=== PATIENT | male | born 1955 | race Caucasian/White ===

== ENCOUNTER 2025-01-16 16:50 | Inpatient (IN) | payer MEDICARE, MEDICAID ==
[~2025-01-16] VITALS: Ht 175.3 cm; Wt 78.0 kg
[2025-01-16] VITALS (7 sets, daily range): PULSE 87–95; RESP 17–30; O2SAT 90–99
--- NOTE | 2025-01-16 17:37 | Physician Documentation ---
History of Present Illness ~ Chief Complaint: Respiratory Distress Stated Complaint: SEE CHIEF COMPLAINT Time Seen by MD: 17:22 Mode of Arrival: EMS, Stretcher HPI 69-year-old male history of methamphetamine use, homelessness, COPD with oxygen noncompliance presented to outside hospital for hypoxia found of O2 84% significant wheezing. He was given magnesium 2 g, 125 mg methylprednisone, albuterol 10 mg, Ativan 0.5 mg Lasix 60 mg nitroglycerin ointment azithromycin 500 mg ceftriaxone 2 g Lopressor 5 mg Labs were significant for proBNP elevation 07601 WBC 13.9 hemoglobin 14.1 troponin 0.066 CTA chest pulmonary embolism no evidence of acute pulmonary embolism mild cardiomegaly bronchopneumonia cirrhotic liver, EKG right bundle branch block. Given Lasix nitroglycerin and started on BiPAP ABG at 2:37 a.m. 7.32 PCT 0 54 troponin 0.063, flu covid negative He is unable to provide me any history. Medication Reconciliation Allergies: Coded Allergies: ampicillin (Verified Allergy, Unknown, 01/16/25) tetracycline (Verified Allergy, Unknown, 01/16/25) Miscellaneous Medications Home Med List (No Home Medications), (Reported) Review of Systems Unable to obtain complete ROS: altered mental status Physical Exam Vital Signs: Temperature: 98.9, Source: Oral, Heart Rate: 97, Respiratory Rate: 20, BP: 157/112, Pulse Oximetry: 92, Weight: 78.000 Oxygen Flow Rate: 0 Physical Exam toxic, diaphoretic no jvd lungs rhales and rhonchi, no distress on 3LNC neuro arrousal to sternal rub, moving all extremities. GCS 8 E1V2M5 abdomen soft non tender lower ext 1+ pitting edema skin pale clammy Progress Results/Orders Results/Orders Orders - OHLFS,JONG Powell Hospitalist (01/16/25 20:48) Fill Out Med Reconciliation (01/16/25 20:48) Vital Signs 01/16/25 01/16/25 01/16/25 01/16/25 16:56 18:23 19:00 19:00 Temp 98.9 Pulse 97 95 95 Resp 20 30 18 30 30 B/P (MAP) 157/112 150/83 (105) Pulse Ox 92 97 O2 Flow Rate 0 FiO2 32 10/16/01/16/25 01/16/25 01/16/25 19:10 19:13 19:21 20:00 Pulse 90 88 87 90 Resp 30 30 24 18 30 B/P (MAP) 149/102 (118) Pulse Ox 90 98 O2 Delivery BiPAP+ Bi-pap O2 Flow Rate 0 0.0 FiO2 32 32 32 01/16/25 01/16/25 20:45 21:00 Pulse 90 Resp 18 B/P (MAP) 134/86 (102) Pulse Ox 99 FiO2 40 Laboratory Tests Test 01/16/25 18:01 01/16/25 18:18 01/16/25 20:33 Blood Gas Specimen Type Arterial Arterial Blood Gas Puncture Site Rr Lr O2 Saturation 95.6 94.1 Arterial Blood pH (Temp corrected) 7.288 L 7.387 Arterial Blood pCO2 (Temp correct) 56.3 H 46.7 Arterial Blood pO2 (Temp corrected) 86.4 71.0 L Arterial Blood PO2/FiO2 Ratio 2.70 2.20 Arterial Blood HCO3 26.3 27.4 Arterial Blood Base Excess -1.4 1.8 Arterial Blood Oxyhemoglobin 94.5 92.4 L Arterial Blood Carboxyhemoglobin 1.0 1.5 Arterial Blood Methemoglobin 0.1 0.3 Arterial Blood Deoxyhemoglobin 4.4 5.8 H Christian Test Modified Modified Blood Gas Hemoglobin 15.4 14.7 Blood Gas Temperature 37.0 37.1 Blood Gas Liter Flow 3 Blood Gas Modality Nasal cannula Mask - bipap FiO2 32.0 32.0 White Blood Count 16.7 H Red Blood Count 4.54 L Hemoglobin 14.7 Hematocrit 45.4 Mean Corpuscular Volume 100.0 H Mean Corpuscular Hemoglobin 32.3 H Mean Corpuscular Hemoglobin Concent 32.3 L Red Cell Distribution Width 15.2 H Platelet Count 174 Mean Platelet Volume 7.9 Neutrophils (%) (Auto) 97.3 H Lymphocytes (%) (Auto) 1.3 L Monocytes (%) (Auto) 1.3 L Eosinophils (%) (Auto) 0 Basophils (%) (Auto) 0.1 Neutrophils # (Auto) 16.3 H Lymphocytes # (Auto) 0.2 L Monocytes # (Auto) 0.2 Eosinophils # (Auto) 0.0 Basophils # (Auto) 0.0 CBC Comment Prothrombin Time 11.8 INR International Normalized Ratio 1.2 Activated Partial Thromboplast Time 29 Coagulation Comments Sodium Level 140 Potassium Level 4.4 Chloride Level 102 Carbon Dioxide Level 29.7 Anion Gap 8 Blood Urea Nitrogen 12 Creatinine 1.04 Estimated GFR/1.73 m2 71 BUN/Creatinine Ratio 11.5 Glucose Level 178 H Hemoglobin A1c 5.3 Lactic Acid Level 1.5 Calcium Level 7.8 L Phosphorus Level 4.7 H Magnesium Level 1.9 Total Bilirubin 0.9 Aspartate Amino Transf (AST/SGOT) 24 Alanine Aminotransferase (ALT/SGPT) 26 Alkaline Phosphatase 91 Total Protein 7.5 Albumin 3.3 L Globulin 4.2 Albumin/Globulin Ratio 0.8 L Chemistry Comments Blood Gas Set Respiration Rate 12 Blood Gas Critical Value Called To Dannielle mohr res Microbiology Date/Time Source Procedure Growth Status 01/16/25 19:06 Blood Hand Left Blood Culture - Preliminary NEGATIVE (LESS THAN 24 HOURS) Resulted Heart Score: Heart Score Response (Comments) Value History N/A 0 EKG N/A 0 Age N/A 0 Risk Factors N/A 0 Troponin N/A 0 Total 0 Medical Decision Making Additional information obtaine: old records Findings 69-year-old male history of methamphetamine use presenting as transfer for dyspnea requiring BiPAP. NSTEMI. Pneumonia. He was given ceftriaxone azithromycin Lasix nitroglycerin and labetalol for hypertension. On arrival patient is significantly altered. GCS 8 and unwell appearing. Labs currently still pending. He is currently protecting his airway. I have signed him out to the incoming night physician Dr. Garcia at bedside who is aware of his respiratory compromise. Initial plan for trial BiPAP with further management disposition per Dr. Garcia Heart Score: 0 Differential Dx:Considerations: Include: cardiogenic shock, CHF, COPD Departure Disposition: ADMITTED INPATIENT Admitted to Inpatient Unit: to hospitalist Impression: Primary Impression: Acute exacerbation of chronic obstructive airways disease Referrals: NO PRIMARY CARE PROVIDER (PCP) Critical Care Note Total Time (mins): 30 Critical Care Note The very real possibility of a deterioration of this patient's condition required the highest level of my preparedness for sudden, emergent intervention. I provided critical care services, which included medication orders, frequent reevaluations of the patient's condition and response to treatment, ordering and reviewing test results, and discussing the case with various consultants. Excludes time spent performing separately billable procedures. The critical care time associated with the care of the patient was 30 minutes in the management of ams GCS Additional Comment Additional Comment The patient was signed out to me with a history of COPD CHF methamphetamine abuse the patient was hypoxic at the outside institution given antibiotics and sent to our facility for admission. The patient is somnolent but arousable the patient was put on BiPAP serial ABG showed improvement in the patient's acidosis as well as an improvement in his hypercapnia, the patient will be admitted to the medical service case has been discussed with the medical service prior hospitalizations and records were reviewed. Patient's chest x-ray was interpreted by me as showing a pulmonary vascular congestion. The patient's cardiac rehabilitation specialist was interpreted as a sinus rhythm in his pulse oximetry was interpreted as abnormal low. The case was discussed with the hospitalist the patient will be admitted to the hospitalist Signature Scribe Signature: [email or web address] Attestation: ADALID Harkins MD Jan 16, 2025 17:37 OHLFS,JONG Hutchinson MD Jan 17, 2025 03:11
--- NOTE | 2025-01-16 17:40 | ELECTROCARDIOGRAPH REPORT ---
[facility] Test Date: 2025-01-16 Test Time: 16:56:34 Pat Name: BALJIT ROBLES Department: EMERGENCY ROOM Room: Gender: M Substation Supervisor: LAQUITA : [id number] Requested By: ADALID WHEELER Order Number: [id number] Reading MD: Measurements Intervals Dell Rate: 97 P: 47 MT: 127 QRS: -94 QRSD: 140 T: 58 QT: 411 QTc: 522 Interpretive Statements Sinus rhythm RBBB and LAFB Baseline wander in lead(s) V6 Please click the below link to view image of tracing.
[2025-01-16 18:06] LABS: ABG BASE EXCESS -1.4 mmol/L (-2.0-3.0); ABG HCO3 26.3 mmol/L (21.0-28.0); ABG OXYGEN SATURATION 95.6 % (94.0-98.0); ABG PCO2 (T) 56.3 mmHg (35.0-48.0); ABG PH (T) 7.288 (7.350-7.450); ABG PO2 (T) 86.4 mmHg (83.0-108.0); ALLEN'S TEST Modified; FCOHb 1.0 % (0.5-1.5); FHHb 4.4 % (0.0-5.0); FIO2 32.0 mmHg/%; FLOW 3 L/min; FMetHb 0.1 % (0.0-1.5); FO2Hb 94.5 % (94.0-98.0); MODE NASAL CANNULA; PATIENT TEMPERATURE 37.0; TOTAL HEMOGLOBIN 15.4 G/dl (13.5-17.5)
[2025-01-16 18:29] LABS: MEAN PLATELET VOLUME 7.9 FL (7.4-10.4); RED CELL DISTRIBUTION WIDTH 15.2 % (11.5-14.5)
[2025-01-16 18:48] LABS: CREATININE 1.04 MG/DL (0.60-1.10); TOTAL CARBON DIOXIDE 29.7 MMOL/L (24-32); eCRCL 68 ML/MIN; eGFR 71 ML/MIN
[2025-01-16] MEDS: albuterol 2.5 MG/3 ML nebule NEB ONE (19:07)
--- NOTE | 2025-01-16 19:28 | RADIOLOGY REPORT ---
EXAM: DI CHEST,SINGLE VIEW CLINICAL HISTORY: sob TECHNIQUE: Single AP view of the chest WID: COMPARISON: None FINDINGS: Lines and tubes: None Chest: Cardiomegaly and pulmonary vascular congestion. Calcified plaque projects over the aortic arch. No significant pleural effusion, pneumothorax, or consolidation. The osseous structures are grossly intact. IMPRESSION: 1. Cardiomegaly and pulmonary vascular congestion.
[2025-01-16 20:40] LABS: ABG BASE EXCESS 1.8 mmol/L (-2.0-3.0); ABG HCO3 27.4 mmol/L (21.0-28.0); ABG OXYGEN SATURATION 94.1 % (94.0-98.0); ABG PCO2 (T) 46.7 mmHg (35.0-48.0); ABG PH (T) 7.387 (7.350-7.450); ABG PO2 (T) 71.0 mmHg (83.0-108.0); ALLEN'S TEST Modified; FCOHb 1.5 % (0.5-1.5); FHHb 5.8 % (0.0-5.0); FIO2 32.0 mmHg/%; FMetHb 0.3 % (0.0-1.5); FO2Hb 92.4 % (94.0-98.0); MODE MASK - BIPAP; PATIENT TEMPERATURE 37.1; RESPIRATORY RATE 12 b/min; TOTAL HEMOGLOBIN 14.7 G/dl (13.5-17.5)
[2025-01-16] MEDS ORDERED: potassium Cl 40MEQ/1/2NS 520ml 520 ML IV PRN (21:30)
[2025-01-16] MEDS ORDERED: magnesium sulf-water 4G/100mL 100 ML IV PRN (21:30)
[2025-01-16] MEDS ORDERED: magnesium Cl slow-release 64mg tablet PO PRN (21:30)
[2025-01-16] MEDS ORDERED: magnesium hydroxide 30ml (MOM) UD suspension PO PRN (21:30)
[2025-01-16] MEDS ORDERED: potassium Cl 20 mEq SR tablet PO PRN ×2 (21:30)
[2025-01-16] MEDS ORDERED: ondansetron/PF 4mg/2ml inj IV PRN (21:30)
[2025-01-16] MEDS ORDERED: magnesium sulf-water 2g/50mL 50 ML IV PRN (21:30)
[2025-01-16] MEDS ORDERED: mag hydrox/Alum hydrox/simeth 30ml oral suspension PO PRN (21:30)
[2025-01-16 21:56] LABS: PHOSPHORUS 4.7 MG/DL (2.3-4.5)
[2025-01-16 21:57] LABS: APTT 29 SECONDS (22-32); INR 1.2 INR
[2025-01-16] MEDS: methylPREDNISolone sod succ/PF 40mg inj. IV SCH (22:14)
[2025-01-16] MEDS: furosemide 10 MG/1 ML 10ml inj IV SCH (22:14)
--- NOTE | 2025-01-16 22:52 | HISTORY AND PHYSICAL-Residence ---
History & Physical Providers to CC Resident Creating Document: ADAL MARRERO RES ~ History of Present Illness Reason for Admit\Complaint: Shortness of breath, AMS History of Present Illness 69-year-old male with history of COPD, meth use, cardiomyopathy, hypertension, CHF was transferred from [facility] for further evaluation and management of acute respiratory failure. Patient was altered when he arrived at our hospital and only opens eyes when called upon and on BiPAP, patient was unable to give history. History was obtained from ED staff and records from [facility]. Patient has intermittent history of homelessness, but currently residing with his friend. He has been noncompliant with his oxygen at home, and has had increasing shortness of breath and generalized weakness over the past week. Today his friend noted that his work of breathing had worsened and called EMS. EMS went to the scene where the patient's room air oxygen was at 84% and had substantial wheezing with some labored breathing. Patient denied chest pain, fever, chills, palpitations, swelling or pain in legs. Hospital course at [facility]: Patient's oxygen saturation improved to 93% at 3 L oxygen. He was was given IV methylprednisolone 125 mg, albuterol nebulization, IV azithromycin 500 mg and IV ceftriaxone 2 g. His ABGs were concerning for respiratory failure and the patient was transferred here for higher level of care. He was also given IV Lasix 40 mg, nitroglycerin 2% transdermal and metoprolol tartrate 5 mg in view of fluid overload and history of CHF and meth induced cardiomyopathy. He had elevated troponin-0.063 ng/mL, and EKG showed sinus tachycardia, rate 102 with right bundle branch block. CTA showed no evidence of acute PE, mild cardiomegaly, bronchopneumonia or nonspecific hypersensitivity pneumonitis, multilevel chronic mild compression fractures of the spine, cirrhotic liver morphology suggested and nonobstructing 6 mm left renal calculus Allergies: Coded Allergies: ampicillin (Verified Allergy, Unknown, 01/16/25) tetracycline (Verified Allergy, Unknown, 01/16/25) Past Medical History Past Medical History COPD Methamphetamine induced cardiomyopathy Hypertension HFrEF Pneumonia Methamphetamine abuse Past Surgical History Surgical History Comment No surgical history available Past Social History Social History Comment Patient has history of meth abuse He continues to smoke cigarettes as per records Unable to obtain further social history, patient is altered ROS ROS Unable to obtain ROS as patient is altered and on BiPAP Unable to obtain: altered mental status Exam Vitals: Vital Signs Date Time Temp Pulse Resp B/P (MAP) Pulse Ox O2 Delivery O2 Flow Rate FiO2 01/16/25 20:45 40 01/16/25 19:21 87 24 Bi-pap 0.0 01/16/25 19:13 90 01/16/25 19:00 150/83 (105) 01/16/25 16:56 98.9 General: Altered and drowsy, disheveled, in respiratory distress HEENT: Atraumatic, normocephalic, anicteric sclera ; pink conjunctiva Neck: Trachea midline. Supple, full range of motion, no JVD Cardiac: Regular rhythm, regular rate with no murmurs all over the precordium. Respiratory: Diminished breath sounds bilaterally at the bases, tachypneic, expiratory wheezing , No rub or rales, Chest wall is symmetric and without deformity. Gastrointestinal: Abdomen symmetric, non-distended, soft, non-tender, normal bowel sounds, no masses Musculoskeletal: Bilateral pitting pedal edema 2+, no cyanosis Neurological: Patient was altered, unable to do neurological examination Skin: Warm and dry Diagnostic Data Last Recorded Lab Results: 01/16/25181701/16/251817 Diagnostic Data: Laboratory Tests Test 01/16/25 18:18 Prothrombin Time 11.8 SECONDS (9.0-12.0) INR International Normalized Ratio 1.2 INR Activated Partial Thromboplast Time 29 SECONDS (22-32) Coagulation Comments Additional Plan Acute respiratory failure COPD exacerbation Possible pneumonia Altered mental status, probably due to hypoxic encephalopathy Tachypneic, RR-30 Patient is on BiPAP, pulse ox-90 Blood pressure is elevated-150/83 Patient uses 3 L oxygen at home, was not compliant with it WBC-16.7, Leukocytosis with neutrophilic predominance of 97.3% Acidotic with hypercapnia, ABG at 6:00 p.m. on 3 L O2 NC showed pH of 7.28, pCO2 56.3 and pO2 86.4 Repeat ABG at 8:30 p.m. on BiPAP with FiO2 -32 showed pH 7.3, pCO2 of 46.7 and pO2 71 GCS 8 on admission Glucose is elevated-178, probably due to steroids Liver enzymes are normal Kidney function is normal Chest x-ray shows cardiomegaly with pulmonary vascular congestion CTA at [facility] shows no evidence for acute pulmonary embolism, mild cardiomegaly, bronchopneumonia are nonspecific hypersensitivity pneumonitis. -mild intrathoracic lymphadenopathy, nonspecific for inflammatory or neoplastic -cirrhotic liver morphology suggested -nonobstructing 6 mm left renal calculus -multilevel chronic mild compression fractures of the spine Plan: Continue BiPAP, we will try to wean patient in the a.m. after evaluation Patient was given IV methylprednisolone [address] [facility] Started IV methylprednisolone 60 mg b.i.d. Started DuoNebs-albuterol 2.5 mg q.2h and ipratropium/albuterol q.4h Started incentive spirometry Started IV ceftriaxone 1 g and IV azithromycin 500 mg daily Started IV Lasix 40 mg daily due to fluid overload Follow up sputum cultures and blood cultures We will consider abdominal ultrasound after stabilization, in view of cirrhotic morphology on CTA Acute on chronic heart failure with reduced ejection fracture Meth induced cardiomyopathy Hypertension Elevated troponin, possibly type 2 NC due to demand ischemia BNP was elevated-[id number] Troponin was 0.066 ng/mL at [facility] EKG shows sinus rhythm, rate 97, QTC 522 with right bundle branch block Chest x-ray shows cardiomegaly and pulmonary vascular congestion Magnesium is normal 1.9 Potassium is normal 4.4 Kidney function is normal Plan: Started IV Lasix 40 mg b.i.d. Strict Is&Os, we will adjust Lasix accordingly We will continue patient's home medications after med reconciliation Ordered IV hydralazine 10 mg p.r.n. if SBP >180 Follow up echo Follow up troponin IV magnesium sulfate 2 g was given to the patient in view of QT prolongation Continue telemetry monitoring Hypocalcemia Hyperphosphatemia Calcium is 7.8 Phosphorus is 4.7 Monitor BMP Methamphetamine abuse Follow up urine tox outpatient services director and substance use navigator consulted #Pending med reconciliation Code status: Full code DVT prophylaxis: SCD Diet/nutrition: Heart healthy diet Prognosis: Guarded Disposition: Continue BiPAP and telemetry monitoring, follow up cultures and troponin, PT eval and DC plan Resident attestation: The patient note has been reviewed and supervised by senior residents PGY-2/ PGY-3. Patient was seen, examined and discussed with attending physician. Adal Marrero MD Internal Medicine resident, PGY-1 Patient seen and evaluated Agree with plans as discussed with the resident Marino Hawk MD Date of Service: Jan 16, 2025 Billing Provider: MARINO HAWK MD, PREETHI, RES Jan 16, 2025 22:52 MARINO HAWK MD Jan 17, 2025 02:39
[2025-01-16] MEDS ORDERED: albuterol 2.5 MG/3 ML nebule NEB SCH (23:00)
[2025-01-16] MEDS: ipratropium/albuterol 3ml nebule NEB SCH (23:05)
[2025-01-16] MEDS ORDERED: albuterol 2.5 MG/3 ML nebule NEB PRN (23:10)
[2025-01-17] VITALS (20 sets, daily range): BP systolic 107–130; BP diastolic 59–89; PULSE 88–108; RESP 12–28; TEMP 96.7–98.7; O2SAT 92–99
[2025-01-17] MEDS ORDERED: hydrALAZINE 20mg/ml inj. IV PRN (00:05)
[2025-01-17] MEDS: magnesium sulf-water 2g/50mL 50 ML IV STA (00:28)
[2025-01-17] MEDS ORDERED: NO HOME MEDS (01:50)
[2025-01-17 07:02] LABS: MEAN PLATELET VOLUME 8.6 FL (7.4-10.4); RED CELL DISTRIBUTION WIDTH 15.2 % (11.5-14.5)
[2025-01-17 07:18] LABS: CHOL/HDL RATIO 2.9 (0.00-4.99); CREATININE 1.15 MG/DL (0.60-1.10); LDL CHOLESTEROL 90 MG/DL (50-100); TOTAL CARBON DIOXIDE 34.6 MMOL/L (24-32); eCRCL 62 ML/MIN; eGFR 63 ML/MIN
[2025-01-17] MEDS: K and/or MAG REPLACEMENT MC SCH (08:00)
[2025-01-17] MEDS: CefTRIAXone/D5W-Rocephin 1gm 50 ML IV SCH (08:46)
[2025-01-17] MEDS: furosemide 10 MG/1 ML 10ml inj IV SCH (08:47)
[2025-01-17] MEDS: lactobacillus rhamnosus 10,000 MMU CELLS/CAPSULE PO SCH (08:48)
[2025-01-17] MEDS: docusate sod 100mg capsule PO SCH (08:48)
[2025-01-17] MEDS: methylPREDNISolone sod succ/PF 40mg inj. IV SCH (08:49)
--- NOTE | 2025-01-17 10:44 | PROGRESS NOTE ---
Daily Progress Note Providers to CC ~ Antibiotic Timeout Antibiotic Ordered?: Yes Subjective No acute events overnight. Patient examined at bedside. No new complaints, not in acute distress. Patient denies chest pain, sob, palpitations, abdominal pain, n/v/d. ABG respiratory acidosis. Vss, on NC, labs unremarkable. Tele sinus in 90s. Objective Vital Signs Date Time Temp Pulse Resp B/P (MAP) Pulse Ox O2 Delivery O2 Flow Rate FiO2 01/17/25 10:08 92 Nasal Cannula 2.0 01/17/25 07:52 91 18 01/17/25 07:44 32 01/17/25 06:00 97.6 124/80 (95) Result Diagram: 01/17/2560401/17/25604 Physical Exam General: Generalized weakness, A&Ox 3, NAD HEENT: Normocephalic, PERRLA Neck: Supple, trachea midline, no JVD Chest: Clear to auscultation bilaterally Cardiovascular: RRR, S1&S2 GI: Soft and nontender Extremities: No cyanosis/clubbing/or edema BONER MEAT: CN II-XII intact, no focal deficits Musculoskeletal: No paraspinal muscle tenderness, no muscle spasm Skin: Warm and intact Coagulation Studies Laboratory Tests Test 01/16/25 18:18 Prothrombin Time 11.8 SECONDS (9.0-12.0) INR International Normalized Ratio 1.2 INR Activated Partial Thromboplast Time 29 SECONDS (22-32) Coagulation Comments Problem\Assessment\Plan Assessment & Plan Acute COPD exacerbation Acute hypoxic hypercapnic respiratory failure 2/2 above Respiratory acidosis Metabolic encephalopathy 2/2 above Acute decompensated heart failure- follow TTE Methamphetamine-induced cardiomyopathy Hypertension NSTEMI likely Type II 2/2 above -ABG respiratory acidosis, pBNP 11,600, EKG sinus 97bpm, QTC 522, RBBB -BiPAP on admission, on NC, continue steroid, bronchodilators, abx prophylaxis, IV magnesium sulfate 2 g was given to the patient in view of QT prolongation; GDMT as tolerated; follow TTE Hypocalcemia Hyperphosphatemia -follow labs Code status: Full code DVT prophylaxis: heparin Date of Service: Jan 17, 2025 Billing Provider: NOHEMY SHORT Common Visit Codes: [id number] INP/OBS CARE(HIGH) NOHEMY SHORT Jan 17, 2025 10:44
[2025-01-17] MEDS: azithromycin/NS 500mg/250ml 250 ML IV SCH (11:46)
[2025-01-17 15:25] LABS: ABG BASE EXCESS 4.2 mmol/L (-2.0-3.0); ABG HCO3 30.3 mmol/L (21.0-28.0); ABG OXYGEN SATURATION 93.1 % (94.0-98.0); ABG PCO2 (T) 51.2 mmHg (35.0-48.0); ABG PH (T) 7.391 (7.350-7.450); ABG PO2 (T) 67.1 mmHg (83.0-108.0); ALLEN'S TEST POSITIVE; FCOHb 1.2 % (0.5-1.5); FHHb 6.8 % (0.0-5.0); FIO2 28.0 mmHg/%; FLOW 2 L/min; FMetHb 0.3 % (0.0-1.5); FO2Hb 91.7 % (94.0-98.0); MODE NASAL CANNULA; PATIENT TEMPERATURE 37.1; TOTAL HEMOGLOBIN 14.3 G/dl (13.5-17.5)
[2025-01-17] MEDS: albuterol 2.5 MG/3 ML nebule NEB PRN (17:06)
[2025-01-17 17:09] LABS: LEUKOCYTE ESTERASE ,URINE NEGATIVE (Neg); NITRITES, URINE NEGATIVE (Neg); OCCULT BLOOD,URINE NEGATIVE (Neg)
[2025-01-17 17:10] LABS: URINE AMPHETAMINE SCREEN POSITIVE (Neg); URINE BARBITUATE SCREEN NEGATIVE (Neg); URINE BENZODIAZEPINES SCREEN NEGATIVE (Neg); URINE CANNABINOID SCREEN NEGATIVE (Neg); URINE COCAINE SCREEN NEGATIVE (Neg); URINE METHADONE SCREEN NEGATIVE (Neg); URINE OPIATE SCREEN NEGATIVE (Neg); URINE PHENCYCLIDINE SCREEN NEGATIVE (Neg)
[2025-01-17 17:11] LABS: UA COLLECTION TYPE URINAL
[2025-01-17] MEDS: heparin, porcine 5000 units/ml vial SQ SCH (19:43)
--- NOTE | 2025-01-17 19:46 | CARDIOLOGY REPORT ---
APPROVED REPORT EXAM: Comprehensive 2D, Doppler, and color-flow Echocardiogram. Patient Location: 302 Blood Pressure: 124/80 mmHg Heart Rate: 101 bpm Indications Abnormal EKG ProBNP: 24226 Coronary Artery Disease CABG X 4 COPD HX of Methamphetamine Use NO INVESTOR RELATIONS DIRECTOR Previous ECHO: 06/07/22, [facility] , EF: 65-70; m RVE; sev DANISH; m MR 2D Dimensions LA Diam 4.3 cm IVSd 1.3 (0.7-1.1cm) LVDd 5.0 cm PWd 1.6 (0.7-1.1cm) IVSs 1.5 (0.8-1.2cm) LVDs 4.1 (2.5-4.0cm) PWs 1.4 (0.8-1.2cm) LVOT Diameter 2.02 (1.8-2.4cm) LVEF(%) 35.1 (>50%) Ao Asc Diam. 2.77 cm IVC 14.51 mm FS (%) 16.8 % SV 40.7 ml CO 4.1 L/min M-Mode Dimensions Left Atrium(MM) 3.91 (2.5-4.0cm) Aortic Root 3.46 (2.2-3.7cm) Aortic Cusp Exc 1.73 (1.5-2.0cm) MV EPSS 1.8 (<0.5cm) Aortic Valve AoV Peak Dmitry. 126.5 cm/s AoV VTI 20.2 cm AO Peak GR. 6.4 mmHg AO Mean GR. 4 mmHg LVOT VTI 15.78 cm LVOT Peak Dmitry. 99.8 cm/s JOSETTE(VTI)/BSA 2.50 cm2/m2 JOSETTE (VTI) 2.50 cm2 AV DI 0.78 % Mitral Valve MV E Velocity 88.4 cm/s MV Peak Gr. 3 mmHg MV DECEL TIME 172 ms MV A Velocity 68.5 cm/s MV PHT 88 ms E/A Ratio 1.3 MVA (PHT) 2.50 cm2 MV VMax 83.1 cm/s TDI Lateral E' P. V 9.01 cm/s E/Lateral E' 9.8 Tricuspid Valve TR P. Velocity 285 cm/s RAP ESTIMATE 10 mmHg TR Peak Gr. 33 mmHg RVSP 43 mmHg LEFT VENTRICLE Normal LV size with severely decreased function. Mild concentric hypertrophy. LVEF is 30-35%. RIGHT VENTRICLE Right ventricle is severely dilated with reduced function. Elevated right heart pressures with an RVSP of 43 mmHG. ATRIA Left atrium is mildly dilated. AORTIC VALVE Trileaflet AV appears mildly sclerotic without stenosis. No insufficiency. MITRAL VALVE Mild mitral annular calcification without stenosis. Mild regurgitation. TRICUSPID VALVE The tricuspid valve is normal in structure with mild to moderate regurgitation. PULMONIC VALVE Pulmonic valve is grossly normal in structure with physiologic insufficiency. GREAT VESSELS The aortic root is normal in size. The ascending aorta is normal in size. IVC is normal in size. PERICARDIUM Normal pericardium. No effusion. Other Information Study Quality: Adequate Conclusion Normal LV size with severely decreased function. Mild concentric hypertrophy. LVEF is 30-35%. Right ventricle is severely dilated with reduced function. Elevated right heart pressures with an RVSP of 43 mmHG. Left atrium is mildly dilated. Trileaflet AV appears mildly sclerotic without stenosis. No insufficiency. Mild mitral annular calcification without stenosis. Mild regurgitation. The tricuspid valve is normal in structure with mild to moderate regurgitation. Normal pericardium. No effusion.
[2025-01-18] VITALS (18 sets, daily range): BP systolic 110–139; BP diastolic 72–95; PULSE 82–98; RESP 12–29; TEMP 97–97.6; O2SAT 86–99
[2025-01-18 06:16] LABS: MEAN PLATELET VOLUME 8.4 FL (7.4-10.4); RED CELL DISTRIBUTION WIDTH 15.0 % (11.5-14.5)
[2025-01-18 06:38] LABS: CREATININE 1.57 MG/DL (0.60-1.10); PRO BRAIN NATRIURETIC PEPTIDE 4583 PG/ML (0-125); TOTAL CARBON DIOXIDE 33.6 MMOL/L (24-32); eCRCL 44 ML/MIN; eGFR 44 ML/MIN
[2025-01-18] MEDS ORDERED: normal saline 1000ml 1,000 ML IV ONE (07:25)
[2025-01-18] MEDS: normal saline 500ml IV soln 500 ML IV ONE (09:17)
--- NOTE | 2025-01-18 12:49 | PROGRESS NOTE ---
Daily Progress Note Providers to CC ~ Antibiotic Timeout Antibiotic Ordered?: Yes Subjective No acute events overnight. Patient examined at bedside. No new complaints, not in acute distress. Patient denies chest pain, sob, palpitations, abdominal pain, n/v/d. ABG respiratory acidosis. Vss, on NC, labs notable for uptrended Cr, downtrend of serum sodium. Diuretics held, started NS. Objective Vital Signs Date Time Temp Pulse Resp B/P (MAP) Pulse Ox O2 Delivery O2 Flow Rate FiO2 01/18/25 11:28 88 18 Nasal Cannula 2.0 01/18/25 11:18 95 28 01/18/25 02:00 97.2 126/75 (92) Result Diagram: 01/18/2539 01/18/25 0539 Physical Exam General: Generalized weakness, A&Ox 3, NAD HEENT: Normocephalic, PERRLA Neck: Supple, trachea midline, no JVD Chest: Clear to auscultation bilaterally Cardiovascular: RRR, S1&S2 GI: Soft and nontender Extremities: No cyanosis/clubbing/or edema ELECTRIC MOTOR ANALYST: CN II-XII intact, no focal deficits Musculoskeletal: No paraspinal muscle tenderness, no muscle spasm Skin: Warm and intact Coagulation Studies Laboratory Tests Test 01/16/25 18:18 Prothrombin Time 11.8 SECONDS (9.0-12.0) INR International Normalized Ratio 1.2 INR Activated Partial Thromboplast Time 29 SECONDS (22-32) Coagulation Comments Problem\Assessment\Plan Assessment & Plan Acute COPD exacerbation Acute hypoxic hypercapnic respiratory failure 2/2 above Respiratory acidosis Metabolic encephalopathy 2/2 above Acute decompensated systolic heart failure Methamphetamine-induced cardiomyopathy NSTEMI likely Type II 2/2 above Hypertension -ABG respiratory acidosis, pBNP 11,600, EKG sinus 97bpm, QTC 522, RBBB -BiPAP on admission, on NC, continue steroid, bronchodilators, abx prophylaxis, IV magnesium sulfate 2 g was given in view of QT prolongation; GDMT as tolerated 01/18: TTE LVEF of 30-35%, RVSP 44mmHg, [id number] tricuspid regurgitation; Cr uptrended, diuretics held and NS started Code status: Full code DVT prophylaxis: heparin Date of Service: Jan 18, 2025 Billing Provider: NOHEMY SHORT Common Visit Codes: [id number] INP/OBS CARE(HIGH) NOHEMY SHORT SENIOR INSTRUCTIONAL DESIGNER Jan 18, 2025 12:49
[2025-01-18] MEDS: normal saline 1000ml 1,000 ML IV SCH (13:55)
[2025-01-19] VITALS (13 sets, daily range): BP systolic 114–124; BP diastolic 75–81; PULSE 80–92; RESP 18–27; TEMP 97.8–98.5; O2SAT 88–100
[2025-01-19 06:29] LABS: MEAN PLATELET VOLUME 8.4 FL (7.4-10.4); RED CELL DISTRIBUTION WIDTH 14.9 % (11.5-14.5)
[2025-01-19 07:02] LABS: CREATININE 0.90 MG/DL (0.60-1.10); PRO BRAIN NATRIURETIC PEPTIDE 5340 PG/ML (0-125); TOTAL CARBON DIOXIDE 33.6 MMOL/L (24-32); eCRCL 76 ML/MIN; eGFR 83 ML/MIN
[2025-01-19] MEDS ORDERED: ALBU18HF2 INH (07:19)
[2025-01-19] MEDS ORDERED: FLUT1DIS4 INH (07:19)
[2025-01-19] MEDS ORDERED: PRED10TA23 PO (07:19)
[2025-01-19] MEDS ORDERED: LISI5TAB22 PO (07:19)
[2025-01-19] MEDS ORDERED: ASPI81TA52 PO (07:19)
[2025-01-19] MEDS: HYDROcodone/acetaminophen 5mg/325mg tablet PO PRN (10:45)
[2025-01-19] MEDS ORDERED: FURO-150 PO (14:42)
[2025-01-19] MEDS ORDERED: EMPA10TA PO (14:42)
[2025-01-19] MEDS: SODIUM ZIRCONIUM CYCLOSILICATE 10 GM POWD.PACK PO ONE (15:03)
--- NOTE | 2025-01-19 15:39 | DISCHARGE SUMMARY ---
Discharge Summary Providers to CC ~ Discharge Summary Admission Diagnosis: Acute COPD exacerbation Hospital Course DATE OF ADMISSION: 01/16/25 DATE OF DISCHARGE: 01/19/25 Discharge Diagnosis\\Comment: Acute COPD exacerbation Acute hypoxic hypercapnic respiratory failure 2/2 above Respiratory acidosis Metabolic encephalopathy 2/2 above Acute decompensated systolic heart failure Methamphetamine-induced cardiomyopathy NSTEMI likely Type II 2/2 above Hypertension Operations\\Procedures: None Consultants: None Complications: None Condition on DC: Stable New Medications: Albuterol Sulfate (Ventolin Hfa) 90 Mcg Hfa.aer.ad 2 PUFFS INH Q4HPRN PRN for wheezing for 30 Days, #18 GM 0 Refills Aspirin (Aspirin EC) 81 Mg Tablet.dr 1 TAB PO DAILY for 30 Days, #30 TAB Empagliflozin (Jardiance) 10 Mg Tablet 1 TAB PO DAILY for 30 Days, #30 TAB 0 Refills Fluticasone/Salmeterol (Advair 250-50 Diskus) 1 Each Disk.w.dev 1 PUFFS INH Q12H for 30 Days, #1 EA 0 Refills Furosemide* (Lasix*) 20 Mg Tablet 1 TAB PO DAILY for 30 Days, #30 TAB Levofloxacin (Levofloxacin) 750 Mg Tablet 750 MG PO DAILY for 5 Days, #5 TAB Lisinopril (Lisinopril) 5 Mg Tablet 1 TAB PO DAILY for 30 Days, #30 TAB 0 Refills Prednisone (Prednisone) 10 Mg Tablet 0 PO DAILY, #42 TAB Take 6 tabs/day x2 days then 5 daily x2 days 4 daily x2 days 3 daily x2 days 2 daily x2 days 1 daily x2 days then stop. Carvedilol (Carvedilol) 3.125 Mg Tablet 3.125 MG PO BID for 30 Days, #60 TAB Continued Medications: Home Med List (No Home Medications) Each Discharge Summary: History of Present Illness From H&P: "69-year-old male with history of COPD, meth use, cardiomyopathy, hypertension, CHF was transferred from [facility] for further evaluation and management of acute respiratory failure. Patient was altered when he arrived at our hospital and only opens eyes when called upon and on BiPAP, patient was unable to give history. History was obtained from ED staff and records from [facility]. Patient has intermittent history of homelessness, but currently residing with his friend. He has been noncompliant with his oxygen at home, and has had increasing shortness of breath and generalized weakness over the past week. Today his friend noted that his work of breathing had worsened and called EMS. EMS went to the scene where the patient's room air oxygen was at 84% and had substantial wheezing with some labored breathing. Patient denied chest pain, fever, chills, palpitations, swelling or pain in legs. Hospital course at [facility]: Patient's oxygen saturation improved to 93% at 3 L oxygen. He was was given IV methylprednisolone 125 mg, albuterol nebulization, IV azithromycin 500 mg and IV ceftriaxone 2 g. His ABGs were concerning for respiratory failure and the patient was transferred here for higher level of care. He was also given IV Lasix 40 mg, nitroglycerin 2% transdermal and metoprolol tartrate 5 mg in view of fluid overload and history of CHF and meth induced cardiomyopathy. He had elevated troponin-0.063 ng/mL, and EKG showed sinus tachycardia, rate 102 with right bundle branch block. CTA showed no evidence of acute PE, mild cardiomegaly, bronchopneumonia o r nonspecific hypersensitivity pneumonitis, multilevel chronic mild compression fractures of the spine, cirrhotic liver morphology suggested and nonobstructing 6 mm left renal calculus." Hospital Course Diagnostic findings were notable for minimally elevated and downtrending troponin series, ABG revealing respiratory acidosis, elevated pBNP at 11,6000pg/ml, TTE revealing LVEF of 30-35%, RVSP 44mmHg, [id number] tricuspid regurgitation, urine drug toxicology positive for amphetamines, EKG sinus 97bpm with prolonged QTc. Patient was initially treated with supplemental oxygen, steroid, bronchodilators, empirical antibiotics, GDMT including diuretics which was transitioned to intravenous fluids due to developing acute kidney injury. Patient did not experience further complications throughout the entire hospital stay. Patient was seen and examined on the day of discharge. On day of discharge, vss and labs unremarkable. All labs, diagnostic workups, discharge plan discussed with patient in details during visit before discharge. All questions and concerns answered to the best of my professional knowledge. Patient is to be discharged to home to self and to follow-up with PCP within 2 weeks. Patient is referred to guide domestic tour and pulmonary rehab upon discharge. Physical Exam General: A&Ox 3, NAD HEENT: Normocephalic, PERRLA Neck: Supple, trachea midline, no JVD Chest: Clear to auscultation bilaterally Cardiovascular: RRR, S1&S2 GI: Soft and nontender Extremities: No cyanosis/clubbing/or edema PHOTOGRAPHY COORDINATOR: CN II-XII intact, no focal deficits Musculoskeletal: No paraspinal muscle tenderness, no muscle spasm Skin: Warm and intact *Problems/Diagnosis: (1) Acute exacerbation of chronic obstructive airways disease Status: Acute Total Time Spent on D/C: > 30 Minutes Date of Service: Jan 19, 2025 Billing Provider: NOHEMY SHORT Common Visit Codes: 11858-QGE/OBS DISCH DAY >30min NOHEMY SHORT Jan 19, 2025 15:39
--- NOTE | 2025-01-19 15:56 | PROGRESS NOTE ---
Daily Progress Note Providers to CC ~ Objective Vital Signs Date Time Temp Pulse Resp B/P (MAP) Pulse Ox O2 Delivery O2 Flow Rate FiO2 01/19/25 15:51 83 26 Nasal Cannula 2.0 01/19/25 15:43 96 21 01/19/25 11:00 98.5 114/75 (88) Result Diagram: 01/19/25 0536 01/19/25 1340 Coagulation Studies Laboratory Tests Test 01/16/25 18:18 Prothrombin Time 11.8 SECONDS (9.0-12.0) INR International Normalized Ratio 1.2 INR Activated Partial Thromboplast Time 29 SECONDS (22-32) Coagulation Comments NOHEMY SHORT MANAGEMENT PROFESSOR Jan 19, 2025 15:56
[2025-01-19] MEDS ORDERED: COR3.125T PO (16:32)
== END 2025-01-19 17:30 | disposition home or self-care (01) | DRG 280 ==
LOC: ER 16:51 → ED HOLD 21:25 → PCU 3S 01-17 03:04
PROVIDERS: ADMIT Internal Medicine; ATTEND Nurse Practitioner Family
PROC: 5A09357 Assistance with Respiratory Ventilation, Less than 24 Consecutive Hours, Continuous Positive Airway Pressure (ICD-10-PCS; principal; 2025-01-16)
PROC: 5A09357 Assistance with Respiratory Ventilation, Less than 24 Consecutive Hours, Continuous Positive Airway Pressure (ICD-10-PCS; 2025-01-17)
DX: I11.0 Hypertensive heart disease with heart failure (principal); G93.41 Metabolic encephalopathy; I21.A1 Myocardial infarction type 2; J96.01 Acute respiratory failure with hypoxia; I50.23 Acute on chronic systolic (congestive) heart failure; J96.02 Acute respiratory failure with hypercapnia; E87.29 Other acidosis; N17.9 Acute kidney failure, unspecified; J44.1 Chronic obstructive pulmonary disease with (acute) exacerbation; I42.7 Cardiomyopathy due to drug and external agent; I36.1 Nonrheumatic tricuspid (valve) insufficiency; I45.10 Unspecified right bundle-branch block; N20.0 Calculus of kidney; T43.655A Adverse effect of methamphetamines, initial encounter; F15.10 Other stimulant abuse, uncomplicated; E83.39 Other disorders of phosphorus metabolism; E83.51 Hypocalcemia; Z79.899 Other long term (current) drug therapy; Z79.51 Long term (current) use of inhaled steroids; Z79.84 Long term (current) use of oral hypoglycemic drugs; Z91.199 Patient's noncompliance with other medical treatment and regimen due to unspecified reason; Z88.1 Allergy status to other antibiotic agents; Y92.89 Other specified places as the place of occurrence of the external cause
CPT/HCPCS: 36415; 36600; 71045; 80048; 80053; 80061; 80305; 81003; 82803; 83036; 83605; 83735; 83880; 84100; 84132; 84145; 84295; 84484; 85018; 85025; 85610; 85730; 86704; 86705; 87040; 87340; 92508; 92616; 93005; 93306; 94640; 94660; 94760; 97161; 97530; 99291; A4615; A4620; A6258; G0378; J0456; J0696; J1644; J1938; J2919; J7030; J7040; J7070

== ENCOUNTER 2025-03-21 18:17 | Inpatient (IN) | payer MEDICARE, MEDICAID ==
[~2025-03-21] VITALS: Ht 172.7 cm; Wt 90.9 kg
[~2025-03-21 18:17] MED LIST: ALBU18HF2 INH; COR3.125T PO; EMPA10TA PO; FLUT1DIS4 INH; LISI5TAB22 PO; NO HOME MEDS
[2025-03-21] MEDS ORDERED: VANCOMYCIN 1GM 200ML H20 (PEG) 200 ML IV ONE (18:50)
[2025-03-21] MEDS: vancomycin/NS 1 GM ADD-VANTAGE 250 ML IV ONE (18:56)
--- NOTE | 2025-03-21 19:01 | Physician Documentation ---
History of Present Illness ~ Chief Complaint: Leg Pain Stated Complaint: CELLULITIS Time Seen by MD: 18:49 HPI This is a 69-year-old gentleman who came all the way from [facility] for evaluation of two separate complaints. He states for the last couple of days he has been experiencing pain, swelling of the 3rd digit of his right hand. No obvious trigger, trauma provocation. No palliating or aggravating factors. Did not attempt to treat it. This was the main reason for him to come in is because he has been experiencing pain in the finger. He also reports pain, swelling, redness in the right lower extremity. He attributes that to his congestive heart failure, but states this is worse swelling in the worse pain. Can not elaborate on exactly how long has been going on for. Reports subjective fever. Denies chest pain or difficulty breathing. Denies any nausea, vomiting, diarrhea, abdominal pain. Tetanus witin 5 years: No Medication Reconciliation Allergies: Coded Allergies: ampicillin (Verified Allergy, Unknown, 03/21/25) tetracycline (Verified Allergy, Unknown, 03/21/25) Scheduled Carvedilol (Carvedilol), 3.125 MG PO BID Empagliflozin (Jardiance), 1 TAB PO DAILY Fluticasone/Salmeterol (Advair 250-50 Diskus), 1 PUFFS INH Q12H Lisinopril (Lisinopril), 1 TAB PO DAILY Scheduled PRN Albuterol Sulfate (Ventolin Hfa), 2 PUFFS INH Q4HPRN PRN for wheezing Miscellaneous Medications Home Med List (No Home Medications), (Reported) Review of Systems ROS 10 point review of systems was performed and unless noted above in HPI is negative for acute process/complaint. Physical Exam Vital Signs: Temperature: 99.9, Source: Temporal, Heart Rate: 97, Respiratory Rate: 15, BP: 141/87, Pulse Oximetry: 95, Weight: 90.900 Physical Exam GENERAL: Awake, alert, oriented, GCS 15, no apparent distress, non-toxic appearing, answers questions, follows commands appropriately. HEENT: Atraumatic, normocephalic, pupils equal, extraocular muscles intact, sclerae anicteric, mucus membranes moist, oropharynx is clear, no stridor. NECK: supple, full active range of motion, trachea midline, no thyromegaly, no lymphadenopathy, no JVD. CARDIOVASCULAR: regular rate/rhythm, no murmurs/gallops/rubs, Pulses are 2+ in all extremities and symmetric. Capillary refill less than 2 seconds. PULMONARY: Nonlabored, good air movement ,no respiratory distress, speaking in full sentences, clear to auscultation bilaterally, no wheezing, no ronchi, no rales, no accessory muscle use. GASTROINTESTINAL: Soft, non-tender, non-distended, normal active bowel sounds, no organomegaly, no pulsatile masses, no CVA tenderness. NEUROLOGIC: Lucid with normal mental status. Normal facial symmetry. Moves all extremities symmetrically and with purpose. No truncal ataxia. Speech is fluid without evidence of dysarthria or aphasia, no focal deficits appreciated. MUSCULOSKELETAL: There is full range of motion of all extremities. There is no joint pain or joint swelling or joint erythema. There is no muscle pain or tenderness or swelling. EXTREMITIES: warm, well-perfused, no cyanosis, no clubbing, no edema, no acute deformities. Skin: warm, dry, no rashes or lesions, no jaundice, no petechiae orpurpura. No ecchymosis. PSYCHIATRIC: Normal affect, normal insight, normal concentration. Focused exam: Right hand is examined. His 3rd digit is swollen, but not erythematous, not held in flexion, not tender to palpation, and has a 0 [place] signs. Preserved sensation. He is able to close the fist. Right lower extremity is also examined. There is significant erythema, swelling, concern for extensive cellulitis. Neurovascularly baseline distal to the site of injury. It is Progress Results/Orders Results/Orders Orders - STERLING REA DO Culture Blood (03/21/25 18:49) Monitor (03/21/25 18:49) Saline Lock (03/21/25 18:49) Drug Screen, Urine (03/21/25 18:49) Completed Orders - STERLING REA DO Electrocardiogram (03/21/25 18:49) Cbc/Diff (03/21/25 18:49) CK (03/21/25 18:49) ESR (03/21/25 18:49) C-Reactive Protein (03/21/25 18:49) Pt Inr (03/21/25 18:49) PTT (03/21/25 18:49) PBNP (03/21/25 18:49) MG (03/21/25 18:49) Vancomycin 1gm 200ml H20 (Peg) (Vancomyc (03/21/25 18:50) CMP (03/21/25 18:49) Hs Troponin I W Calculations (03/21/25 18:49) Hs Troponin I W Calculations (03/21/25 20:49) Lacticsepsis (03/21/25 18:49) Cefepime 1gm In D5w 50ml (Cefepime 1gm/D (03/21/25 18:50) Ethanol (03/21/25 18:49) Vancomycin/Ns 1 Gm Add-Wins[place] (Vancomyc (03/21/25 18:56) Medications Received in ER Medications (Trade) Dose Ordered Sig/Darline Route PRN Reason Start Time Stop Time Status Last Admin Dose Admin Cefepime/Dextrose 50 ml @ 100 mls/hr ONCE ONCE IV 03/21/25 18:50 03/21/25 19:19 DC 03/21/25 22:08 100 MLS/HR Vancomycin HCl 250 ml @ 166 mls/hr ONCE ONCE IV 03/21/25 18:56 03/21/25 20:20 DC 03/21/25 18:56 166 MLS/HR Vital Signs 03/21/25 03/21/25 03/21/25 03/21/25 18:41 22:10 22:11 23:21 Temp 99.9 99.7 Pulse 97 88 84 Resp 15 16 16 16 B/P (MAP) 141/87 115/67 (83) 109/65 (80) Pulse Ox 95 94 98 Laboratory Tests Test 03/21/25 19:06 03/21/25 21:10 White Blood Count 7.3 Red Blood Count 4.76 Hemoglobin 15.1 Hematocrit 46.2 Mean Corpuscular Volume 96.9 Mean Corpuscular Hemoglobin 31.7 H Mean Corpuscular Hemoglobin Concent 32.7 L Red Cell Distribution Width 14.2 Platelet Count 176 Mean Platelet Volume 7.7 Neutrophils (%) (Auto) 80.3 H Lymphocytes (%) (Auto) 9.8 L Monocytes (%) (Auto) 8.2 Eosinophils (%) (Auto) 1.3 Basophils (%) (Auto) 0.4 Neutrophils # (Auto) 5.8 Lymphocytes # (Auto) 0.7 L Monocytes # (Auto) 0.6 Eosinophils # (Auto) 0.1 Basophils # (Auto) 0.0 CBC Comment Erythrocyte Sedimentation Rate 5 Prothrombin Time 11.6 INR International Normalized Ratio 1.1 Activated Partial Thromboplast Time 27 Coagulation Comments Sodium Level 143 Potassium Level 3.8 Chloride Level 105 Carbon Dioxide Level 34.4 H Anion Gap 4 L Blood Urea Nitrogen 25 H Creatinine 1.27 H Estimated GFR/1.73 m2 56 BUN/Creatinine Ratio 19.7 Glucose Level 181 H Lactic Acid Level 1.9 Calcium Level 8.4 L Magnesium Level 1.8 Total Bilirubin 0.6 Aspartate Amino Transf (AST/SGOT) 24 Alanine Aminotransferase (ALT/SGPT) 21 Alkaline Phosphatase 97 Total Creatine Kinase 75 Troponin I High Sensitivity 162 *H 158 *H C-Reactive Protein 1.88 H Pro-B-Type Natriuretic Peptide 65451 H Total Protein 6.4 Albumin 3.1 L Globulin 3.3 Albumin/Globulin Ratio 0.9 L Chemistry Comments Ethyl Alcohol Level < 10 Troponin I High Sens Percent Delta 2 Troponin I Hi Sens Absolute Change -4 Microbiology Date/Time Source Procedure Growth Status 03/21/25 21:10 Blood Hand Left Blood Culture - Preliminary NEGATIVE (LESS THAN 24 HOURS) Resulted EKG/XRAY/CT/US/VASC/MRI EKG : Additional Comment EKG was obtained and interpreted by myself shows sinus rhythm of 91, normal TN interval, wide QRS with a right bundle, positive QT prolongation, left axis, no STEMI. Medical Decision Making Additional information obtaine: old records Findings Facility Status: ED Holds, [facility] process The plan was discussed with the patient, who demonstrates clear understanding of the plan and is in agreement with the plan unless otherwise noted in the chart. All questions have been answered, all concerns were addressed unless otherwise documented. I was available throughout their ED stay for frequent reassessment and questions. Differential Diagnoses (considered and possible or likely): [With a respect to hand, differential includes but not limited to cellulitis, abscess, less likely osteomyelitis. Given lack of kind navel signs, I do not suspect flexor tenosynovitis. With a respect to her right lower extremity pain and swelling, most likely represents cellulitis, less likely abscess, less likely necrotizing infection, less likely osteomyelitis. CHF exacerbation had also been considerably. Less likely DVT.] ??Differential Diagnoses (considered and unlikely, not requiring evaluation currently): [See above] [facility] Data Please see HPI for the following: Independent Historians and external Records Review. Historian: [Patient] Independent Historians: ?[Record review] old records from January 17 2025 shows echo with a EF of 35% Medication Management: [Reviewed medication list] Social History and determinants: [Reviewed] Please see the body of the note for the following: Any independent inter pretations of ECG, imaging studies. All vitals signs/haemodynamics, ordered tests were independently reviewed and interpreted by myself. Nursing triage complaint and vitals reviewed, additional nursing notes were reviewed as available and I agree unless otherwise noted or documented in contradiction in the chart Vital Signs: Independently reviewed Labs: Independently interpreted Imaging: Independently interpreted Old Medical Records: Independently reviewed, see HPI for relevant summary and information Pulse Oximetry: [97%] interpreted as [normal on room air] by me [Production Machine Operator: [Regular Rate, Regular rhythm, no ectopy, NSR] reviewed and interpreted by me] Additionally notably showing: [Hemodynamics reviewed. The patient isn't febrile, not tachycardic, no evidence of hypotension or respiratory distress. CBC normal, no significant white count, no anemia, normal platelets. 80% neutrophilic predominance. ESR is normal. Coagulation panel is unremarkable. Chemistry shows MURTAZA versus CKD. Marked elevation of BNP and troponin. CRP is elevated. Ethanol is negative. ] Tests considered but not ordered include: [Advanced imaging can be done on an inpatient basis.] Social Determinants of Health Impact: Patient was evaluated in [facility] [place] to healthcare due to below par ratio of patient to medical providers. [] Comorbid Conditions Impacting Present Evaluation and Care/Treatment: [CHF] Management Discussions with other Healthcare Providers: [Hospitalist regarding admission] Treatment and Disposition Medication Management (Given or considered): []. See EMR for details Consideration for Hospitalization/Escalation/Deescalation of Care: Admission for observation is necessary for further management of his CHF exacerbation and cellulitis of left lower extremity. Additionally, infection of the finger has to be treat it, although that could has been done on an outpatient basis. ?ED Course:?[No clinical deterioration or improvement.] ?Shared decision making:?[] Code status:?FULL Please see the full Electronic Medical Record for full details of nursing documentation, medications list, other records of complete past medical history and conditions, vital signs, laboratory studies, and any radiologic study interpretations by radiologists. Portions of this note were completed using [employer] dictation software and as a result there may exist minor errors in spelling. I have reviewed elements of past family and social history and agree as included in note. General Diff Dx:Considerations: Include: Other (See body of may note for differential diagnosis) Knee Diff Dx:Considerations: Unlikely: Other Ankle Diff Dx:Considerations: Unlikely: Other Foot Diff Dx:Considerations: Unlikely: Other Toe Diff Dx:Considerations: Unlikely: Other Departure Disposition: ADMITTED INPATIENT Admitted to Inpatient Unit: to hospitalist Impression: Primary Impression: Acute exacerbation of congestive heart failure Additional Impressions: Elevated troponin Right forearm cellulitis Finger infection Condition: Stable Referrals: NO PRIMARY CARE PROVIDER (PCP) Signature Scribe Signature: No scribe Attestation: The note accurately reflects work and decisions made by me.Sterling Rea DO 03/21/25 18:59 STERLING REA DO Mar 21, 2025 19:01
--- NOTE | 2025-03-21 19:08 | ELECTROCARDIOGRAPH REPORT ---
[facility] Test Date: 2025-03-21 Test Time: 19:06:51 Pat Name: BALJIT ROBLES Department: [facility]-ER Patient ID: [facility]-[id number] Room: [place] [address] Gender: M Septic Tank Cleaner: CARLOS : 1955 Requested By: ADALID REA Order Number: [id number] Reading MD: Dr. Lucian Tatum Measurements Intervals [place] Rate: 91 P: 63 WI: 162 QRS: -114 QRSD: 148 T: 62 QT: 428 QTc: 527 Interpretive Statements Sinus rhythm LAE, consider biatrial enlargement RBBB and LAFB Electronically Signed On 03-27-2025 0:22:[address] Lucian Tatum Please click the below link to view image of tracing.
[2025-03-21 19:13] LABS: MEAN PLATELET VOLUME 7.7 FL (7.4-10.4); RED CELL DISTRIBUTION WIDTH 14.2 % (11.5-14.5)
[2025-03-21 19:27] LABS: APTT 27 SECONDS (22-32); INR 1.1 INR
[2025-03-21 19:30] LABS: CREATININE 1.27 MG/DL (0.60-1.10); TOTAL CARBON DIOXIDE 34.4 MMOL/L (24-32); eCRCL 52 ML/MIN; eGFR 56 ML/MIN
[2025-03-21 19:37] LABS: ETHANOL < 10 MG/DL (<10); PRO BRAIN NATRIURETIC PEPTIDE 11468 PG/ML (0-125)
[2025-03-21] MEDS: cefepime 1GM in D5W 50mL 50 ML IV ONE (22:08)
[2025-03-22] MEDS ORDERED: potassium Cl 40MEQ/1/2NS 520ml 520 ML IV PRN (00:15)
[2025-03-22] MEDS ORDERED: magnesium sulf-water 4G/100mL 100 ML IV PRN (00:15)
[2025-03-22] MEDS ORDERED: potassium Cl 20 mEq SR tablet PO PRN (00:15)
[2025-03-22] MEDS ORDERED: magnesium hydroxide 30ml (MOM) UD suspension PO PRN (00:15)
[2025-03-22] MEDS ORDERED: mag hydrox/Alum hydrox/simeth 30ml oral suspension PO PRN (00:15)
[2025-03-22] MEDS ORDERED: magnesium Cl slow-release 64mg tablet PO PRN (00:15)
[2025-03-22] MEDS ORDERED: magnesium sulf-water 2g/50mL 50 ML IV PRN (00:15)
[2025-03-22] MEDS ORDERED: ondansetron/PF 4mg/2ml inj IV PRN (00:15)
--- NOTE | 2025-03-22 00:21 | HISTORY AND PHYSICAL-Residence ---
History & Physical Providers to CC Resident Creating Document: AMARI CURIEL, KEYUR ~ History of Present Illness Reason for Admit\Complaint: Acute exacerbation of CHF, right upper and lower extremity cellulitis History of Present Illness 69-year-old male with history of COPD, polysubstance use, nicotine use, methamphetamine use, alcohol use disorder, meth induced cardiomyopathy, systolic heart failure,, hypertension, presented to the ER with chief complaints of swelling of the right 3rd finger and swelling over bilateral lower leg. He endorses swelling of right 3rd finger for the past 2 and of days and he do have fever for the past 2 days, high-grade, intermittent not associated with chills and rigors. He endorses swelling, redness, pain over the bilateral lower leg for the past few months which is more from the past 3 days. He reports shortness of breath usually with walking for 10-20 block and denied association with orthopnea and PND. He is complaining of the swelling of the leg for the past 3 months. He endorses productive cough with clear mucoid sputum and wheezing for the past 3 days. She is still taking the meth and his last methamphetamine use is 2-3 days back and he is drinking alcohol and his last drink was couple of days back. She denied chest pain, palpitations, facial puffiness, abdominal pain, abdominal distention, decreased urine output, wheezing. He denied weakness of limbs, slurring of speech, deviation of angle of mouth, seizures. Discussed code status with the patient and patient wants to be full code Allergies: Coded Allergies: ampicillin (Verified Allergy, Unknown, 03/21/25) tetracycline (Verified Allergy, Unknown, 03/21/25) Home Medications Home Medications Active Carvedilol 3.125 Mg Tablet 3.125 Mg PO BID 30 Days Jardiance (Empagliflozin) 10 Mg Tablet 1 Tab PO DAILY 30 Days Advair 250-50 Diskus (Salmeterol Xinafoate/Fluticasone) 1 Each Disk.w.dev 1 Puffs INH Q12H 30 Days Ventolin Hfa (Albuterol Sulfate) 90 Mcg Hfa.aer.ad 2 Puffs INH Q4HPRN PRN 30 Days Lisinopril 5 Mg Tablet 1 Tab PO DAILY 30 Days Reported No Home Medications (Home Med List) Each Past Medical History Past Medical History COPD Methamphetamine induced cardiomyopathy Hypertension HFrEF Pneumonia Methamphetamine abuse Past Surgical History Surgical History Comment Unknown Family History Family History: Patient reports no known family medical history. Past Social History Social History Comment He takes methamphetamine and he has lost intake is on couple of days back . Smoking cigarettes about 1 pack a day and he endorses that he quit smoking few weeks back(questionable history, inconsistent with the answers) He takes alcohol(he is not sure about the quantity but he seems to be taking heavy quantities of alcohol and his last alcohol intake was few days ago Smoking: Quit less than 1 year, Cigarettes, Greater than 1 pack/day Alcohol Use: Heavy Drug Use: Methamphetamine ROS All Other Systems: Reviewed and Negative ROS Reviewed in full and negative except positive pertinent as in HPI Exam Vitals: Vital Signs Date Time Temp Pulse Resp B/P (MAP) Pulse Ox O2 Delivery O2 Flow Rate FiO2 03/22/25 00:11 99.7 83 16 108/69 (82) 95 0 General: General: Awake, alert, oriented, GCS 15, no apparent distress, non-toxic appearing.. HEENT: Atraumatic, normocephalic, pupils equal, extraocular muscles intact, sclerae anicteric, mucus membranes moist, oropharynx is clear, no stridor. Neck: supple, full active range of motion, trachea midline, no thyromegaly, no lymphadenopathy, no JVD. Cardiovascular system: regular rate/rhythm, no/gallops/rubs. Pansystolic murmur heard in the left lower sternal border, grading 1 to 2/6. Pulses are 2+ in all extremities and symmetric. Capillary refill less than 2 seconds. Chest and respiratory system: Nonlabored, good air movement ,no respiratory distress, speaking in full sentences, clear to auscultation bilaterally, no wheezing, no ronchi, bilateral basal crepitations are heard. no accessory muscle use. Gastrointestinal: Soft, non-tender, non-distended, normal active bowel sounds, no organomegaly, no pulsatile masses, no CVA tenderness. Neurological system: Higher mental functions are intact. Tone, bulk, power, reflexes are normal and intact. Sensory system is intact cranial nerves 2-12 are intact. No signs of cerebellum dysfunction. No signs of meningitis Musculoskeletal: There is full range of motion of all extremities. There is no joint pain or joint swelling or joint erythema. There is no muscle pain or tenderness or swelling. Extremities: warm, well-perfused, no cyanosis, no clubbing, no edema, no acute deformities. Right hand: 3rd digit is swollen but not erythematous and nontender. Right and left lower extremity: Swelling, erythematous suggestive of cellulitis. Skin: warm, dry, no rashes or lesions, no jaundice, no petechiae orpurpura. No ecchymosis. Healed crusted ulcers are there on bilateral faith of TBI Psychiatric: Normal affect, normal insight, normal concentration. Diagnostic Data Last Recorded Lab Results: 03/21/[id number] Diagnostic Data: Laboratory Tests Test 03/21/25 19:06 Prothrombin Time 11.6 SECONDS (9.0-12.0) INR International Normalized Ratio 1.1 INR Activated Partial Thromboplast Time 27 SECONDS (22-32) Coagulation Comments Advance Care Planning Advanced Care plannin - 30 Minutes Additional Plan Acute on chronic systolic heart failure Heart failure with reduced ejection fraction of 30-35% Dilated cardiomyopathy , methamphetamine related Pulmonary hypertension Previous echocardiogram showed mild concentric LVH. With LVEF of 30-35%. Right ventricle severe dilatation with a reduced function. Elevated right heart pressures with RVSP of 43. Left atrium is mildly dilated. [id number] [place] [address] Chest x-ray showed cardiomegaly with bilateral pulmonary congestion Started on Lasix 40 mg IV b.i.d. titrate to lower doses to maintain euvolemia We will continue GDM T medications of losartan 25 mg, spironolactone 25 mg, Jardiance 10 mg, carvedilol 3.125 mg b.i.d. We will continue aspirin 81 mg atorvastatin 40 mg. Right upper extremity cellulitis Bilateral lower extremity cellulitis WBC and lactic acid is normal. Elevated CRP Procalcitonin is ordered Started on vancomycin pharmacy to dose and cefepime 2 g IV q.12h Ordered x-ray right hand and CT lower extremity to rule out osteomyelitis Polysubstance use Methamphetamine use Alcohol use Nicotine use Social and substance use consults were placed and patient is on detox protocol Ordered urinary tox follow up with the results. Troponinemia likely secondary to type 2 [place] EKG showed bifascicular block on troponins are trended down to 158 from 162 Ordered echocardiogram and we will follow up with the results We will continue aspirin, atorvastatin MURTAZA likely secondary to renal tubular stasis Serum creatinine is 1.27 and BUN to creatinine ratio of 19.7 likely suggestive of renal tubular stasis We ordered urinary lytes with serum osmolality, follow up with the results Obesity class 1 Follow up in outpatient with PCP Recommended for weight reduction and physical exercise Code status: Full code Diet: Heart healthy diet DVT prophylaxis: Heparin Prognosis: Guarded Amari Curiel IM resident, PGY 2 I saw and discussed the case of the patient with the resident team and I agree with assessment and plan as documented We utilized the HIPPAA compliant A/V system Time spent was 31 minutes Date of Service: Mar 22, 2025 Billing Provider: RAKESH NGUYEN MD, VENKATES[place], [facility] Mar 22, 2025 00:21 RAKESH NGUYEN MD Mar 22, 2025 07:51
[2025-03-22 00:40] LABS: LEUKOCYTE ESTERASE ,URINE NEGATIVE (Neg); NITRITES, URINE NEGATIVE (Neg); OCCULT BLOOD,URINE NEGATIVE (Neg)
[2025-03-22 00:41] LABS: UA COLLECTION TYPE NON-SPECIFIED
[2025-03-22 00:46] LABS: CREATININE,URINE RANDOM 44.0 MG/DL; TOTAL PROTEIN,URINE RANDOM 10.2 MG/DL
[2025-03-22 00:49] LABS: SQUAMOUS EPITHELIAL CELL,UR NONE SEEN /LPF (FEW)
[2025-03-22 00:57] LABS: PHOSPHORUS 3.8 MG/DL (2.3-4.5)
--- NOTE | 2025-03-22 00:58 | RADIOLOGY REPORT ---
CHEST RADIOGRAPH INDICATION: CHF TECHNIQUE: Single frontal view of the chest was obtained COMPARISON: DI CHEST,SINGLE VIEW on DOS: 01/16/25, CHEST 1 VIEW on DOS: 01/16/25 FINDINGS: Lungs and pleural spaces are clear. Cardiac silhouette is enlarged. No pulmonary edema. Bones and soft tissues demonstrate no significant abnormality. IMPRESSION: No acute disease.
[2025-03-22 01:02] LABS: OSMOLALITY UA 538.0 MOSM/K (50-1400)
[2025-03-22] MEDS ORDERED: ATOR40TA72 PO (01:02)
[2025-03-22] MEDS ORDERED: DOCU-391 PO (01:02)
[2025-03-22] MEDS ORDERED: LOSA25TA41 PO (01:02)
[2025-03-22] MEDS ORDERED: FURO40TA4 PO (01:02)
[2025-03-22] MEDS ORDERED: SPIR25TA5 PO (01:02)
[2025-03-22] MEDS ORDERED: ASPI-1397 PO (01:02)
[2025-03-22 01:06] LABS: UA EOSINOPHILS NO EOS /HPF
[2025-03-22 01:11] LABS: URINE AMPHETAMINE SCREEN POSITIVE (Neg); URINE BARBITUATE SCREEN NEGATIVE (Neg); URINE BENZODIAZEPINES SCREEN NEGATIVE (Neg); URINE CANNABINOID SCREEN NEGATIVE (Neg); URINE COCAINE SCREEN NEGATIVE (Neg); URINE METHADONE SCREEN NEGATIVE (Neg); URINE OPIATE SCREEN NEGATIVE (Neg); URINE PHENCYCLIDINE SCREEN NEGATIVE (Neg)
[2025-03-22] MEDS ORDERED: dextrose 50%-water 50ml dispensing syringe IV PRN (01:15)
[2025-03-22] MEDS: furosemide 10 MG/1 ML 10ml inj IV SCH (01:18)
--- NOTE | 2025-03-22 02:02 | RADIOLOGY REPORT ---
CLINICAL INDICATION: Right hand cellulitis with osteomyelitis TECHNIQUE: HAND LTDDI HAND,LIMITED (AP/LAT) COMPARISON: None FINDINGS/IMPRESSION: : No obvious erosive changes to suggest osteomyelitis. Severe soft tissue swelling at the 3rd finger. No soft tissue gas.
[2025-03-22 03:21] LABS: CREATININE 1.23 MG/DL (0.60-1.10); eCRCL 54 ML/MIN; eGFR 58 ML/MIN
[2025-03-22 04:40] LABS: OSMOLALITY 295 MOSM/K (280-300)
[2025-03-22] MEDS: vancomycin/NS 1 GM ADD-VANTAGE 250 ML IV SCH (07:27)
[2025-03-22] MEDS: nicotine 14mg patch - 24hr TD SCH (07:27)
[2025-03-22] MEDS: aspirin 81mg, enteric-coated 1 TAB TABLET.DR PO SCH (07:28)
[2025-03-22] MEDS: heparin, porcine 5000 units/ml vial SQ SCH (07:28)
[2025-03-22] MEDS: docusate sod 100mg capsule PO SCH (07:29)
[2025-03-22] MEDS: thiamine 100mg/ml 2ml inj. IV SCH (07:29)
[2025-03-22] MEDS: EMPAGLIFLOZIN 10 MG TABLET PO SCH (07:30)
[2025-03-22] MEDS: K and/or MAG REPLACEMENT MC SCH (08:00)
[2025-03-22] MEDS: folic acid 1mg/0.2ml inj IV SCH (10:00)
[2025-03-22] MEDS: CEFEPIME 2gm in D5W 50mL 50 ML IV SCH (10:00)
--- NOTE | 2025-03-22 11:42 | RADIOLOGY REPORT ---
PROCEDURE: CT CT LOWER EXTREMITY 03/22/2025 10:48 AM INDICATION: Cellulitis with osteomyelitis Comparison Study: None TECHNIQUE: Axial images of the lower extremity were obtained and reformatted in coronal and sagittal planes. All CT scans at this medical facility are performed using dose modulation techniques as appropriate to a performed exam including the following: Automated exposure control was utilized; adjustment of the MA and/or KV according to patient size; and use of iterative reconstruction technique. CT Dose: CTDI volume is 5.4 mGy. Dose-length product is 571 mGy*cm FINDINGS: Bones: No erosive changes of the bony cortex. No periostitis. No lytic or blastic lesions Soft tissues: Slight soft tissue swelling without focal abscess. IMPRESSION: 1. No signs of osteomyelitis or soft tissue abscess.
[2025-03-22] MEDS: HYDROcodone/acetaminophen 5mg/325mg tablet PO PRN (12:28)
[2025-03-23] VITALS (10 sets, daily range): BP systolic 106–194; BP diastolic 55–94; PULSE 69–94; RESP 13–24; TEMP 97.6–99; O2SAT 91–98
[2025-03-23 01:50] LABS: MEAN PLATELET VOLUME 8.0 FL (7.4-10.4); RED CELL DISTRIBUTION WIDTH 14.4 % (11.5-14.5)
[2025-03-23] MEDS: VANCOMYCIN LEVEL IV ONE (06:30)
[2025-03-23 09:03] LABS: CREATININE 1.20 MG/DL (0.60-1.10); PHOSPHORUS 3.4 MG/DL (2.3-4.5); TOTAL CARBON DIOXIDE 34.4 MMOL/L (24-32); eCRCL 55 ML/MIN; eGFR 60 ML/MIN
[2025-03-23] MEDS: potassium Cl 20 mEq SR tablet PO PRN (09:47)
[2025-03-23] MEDS: HYDROcodone/acetaminophen 10/325mg tab PO PRN (16:56)
--- NOTE | 2025-03-23 18:06 | PROGRESS NOTE ---
Daily Progress Note Providers to CC Today, patient is feeling better, pain well controlled ~ Central Line/PICC still needed: No Gallegos-Non Protocol Gallegos Indications Met/Not Met: F/C Indications Not Met Antibiotic Timeout Antibiotic Ordered?: Yes MRSA Education MRSA Education Provided to pt: Yes Subjective As above Objective Vital Signs Date Time Temp Pulse Resp B/P (MAP) Pulse Ox O2 Delivery O2 Flow Rate FiO2 03/23/25 16:56 15 03/23/25 11:29 95 Room Air 03/23/25 08:54 92 03/23/25 05:00 133/63 (86) 03/23/25 00:00 0 03/22/25 23:00 98.1 Vital signs, stable ,afebrile. Pulse Oximetry reflects adequate oxygenation. General: well developed, well nourished. Awake , alert, and oriented x4, resting comfortably in the bed, in no acute distress . Skin: Warm, dry, no pallor, no rash or petechiae. HEENT: Atraumatic, normocephalic, EOMI, anicteric sclera B; pink conjunctiva; PERRLA, normal oropharynx, moist oral and nasal mucosa. Tympanic membrane , nose , throat clear. Neck: Trachea midline. Supple, full range of motion, no JVD, bruit , hepatojugular reflex , lymphadenopathy or masses, or other lesions Cardiac: Regular rhythm, regular rate no murmurs, rubs, or gallops. Normal S1 and S2, no S3 noticed. PMI is normal. Respiratory: Equal breath sounds bilaterally, no tachypnea; lungs clear to auscultation bilaterally, no wheezing ,rub or rales, or crackles. Chest wall is symmetric and without deformity. No signs of trauma. Chest wall is nontender. No signs of respiratory distress. Resonance is normal upon percussion bilaterally. Gastrointestinal: Abdomen symmetric, non-distended, soft, non-tender, normal bowel sounds x4 quadrant, normoactive, no hepatosplenomegaly , no masses , no bruit, no flank pain bilaterally. No voluntary guarding, rebound, or rigidity. No tenderness to percussion. No pulsatile masses. Equal femoral pulses. No Garner's sign or McBurney point tenderness. Back; no CVA tenderness bilaterally, no deformities. Neck and back are without deformity as well. No tenderness noted on palpation of the spinous processes. Spinous processes are midline. Cervical, thoracic, and lumbar paraspinal muscles are not tender and are without spasm. : normal external genitalia, without lesions, swelling, masses or tenderness. Musculoskeletal: Extremities, normal range of motion, non-tender, muscle strength 5/5 x 4. Negative Homans signs bilaterally on lower extremity. Distal pulses full symmetrical, no clubbing, cyanosis , edema. Bilateral lower extremity, dressing clean dry intact neurovascular grossly intact Neurological: Speech is clear, alert, and oriented x 4. No motor or sensory deficit, deep tendon reflexes normal, cerebellar intact. Cranial nerves II-XII intact. Psych: Alert and or appropriate, normal affect. Vascular: Good distal pulses, which are equal x4; capillary refill less than 2 seconds. Lymphatic, no lymphadenopathy. Result Diagram: 03/23/25 0119 03/23/25 0806 Coagulation Studies Laboratory Tests Test 03/21/25 19:06 Prothrombin Time 11.6 SECONDS (9.0-12.0) INR International Normalized Ratio 1.1 INR Activated Partial Thromboplast Time 27 SECONDS (22-32) Coagulation Comments Problem\Assessment\Plan Assessment/Plan Acute on chronic systolic heart failure Heart failure with reduced ejection fraction of 30-35% Dilated cardiomyopathy , methamphetamine related Pulmonary hypertension Previous echocardiogram showed mild concentric LVH. With LVEF of 30-35%. Right ventricle severe dilatation with a reduced function. Elevated right heart pressures with RVSP of 43. Left atrium is mildly dilated. [id number] [place] [address] Chest x-ray showed cardiomegaly with bilateral pulmonary congestion Started on Lasix 40 mg IV b.i.d. titrate to lower doses to maintain euvolemia We will continue GDM T medications of losartan 25 mg, spironolactone 25 mg, Jardiance 10 mg, carvedilol 3.125 mg b.i.d. We will continue aspirin 81 mg atorvastatin 40 mg. Right upper extremity cellulitis Bilateral lower extremity cellulitis WBC and lactic acid is normal. Elevated CRP Procalcitonin is ordered Started on vancomycin pharmacy to dose and cefepime 2 g IV q.12h Ordered x-ray right hand and CT lower extremity to rule out osteomyelitis Polysubstance use Methamphetamine use Alcohol use Nicotine use Social and substance use consults were placed and patient is on detox protocol Ordered urinary tox follow up with the results. Troponinemia likely secondary to type 2 [place] EKG showed bifascicular block on troponins are trended down to 158 from 162 Ordered echocardiogram and we will follow up with the results We will continue aspirin, atorvastatin MURTAZA likely secondary to renal tubular stasis Serum creatinine is 1.27 and BUN to creatinine ratio of 19.7 likely suggestive of renal tubular stasis We ordered urinary lytes with serum osmolality, follow up with the results Obesity class 1 Follow up in outpatient with PCP Recommended for weight reduction and physical exercise Code status: Full code Diet: Heart healthy diet DVT prophylaxis: Heparin Prognosis: Guarded Date of Service: Mar 23, 2025 Billing Provider: CHANTAL GARCÍA MD Common Visit Codes: [id number] INP/OBS CARE(HIGH) CHANTAL GARCÍA MD Mar 23, 2025 18:06
[2025-03-23] MEDS ORDERED: morphine 4 MG/ML inj SYRINge IV PRN (21:20)
[2025-03-23] MEDS: morphine 4 MG/ML inj SYRINge IV PRN (21:35)
[2025-03-23] MEDS: vancomycin/NS 1 GM ADD-VANTAGE 250 ML IV SCH (23:28)
[2025-03-24] VITALS (10 sets, daily range): BP systolic 118–154; BP diastolic 62–97; PULSE 67–106; RESP 12–28; TEMP 97.5–98.5; O2SAT 90–97
[2025-03-24 06:21] LABS: MEAN PLATELET VOLUME 7.8 FL (7.4-10.4); RED CELL DISTRIBUTION WIDTH 14.4 % (11.5-14.5)
[2025-03-24 06:35] LABS: CREATININE 1.16 MG/DL (0.60-1.10); PHOSPHORUS 2.8 MG/DL (2.3-4.5); TOTAL CARBON DIOXIDE 34.1 MMOL/L (24-32); eCRCL 57 ML/MIN; eGFR 62 ML/MIN
--- NOTE | 2025-03-24 19:36 | PROGRESS NOTE ---
Daily Progress Note Providers to CC ~ patient resting comfortably in the bed somnolent after benzodiazepine Central Line/PICC still needed: No Gallegos-Non Protocol Gallegos Indications Met/Not Met: F/C Indications Not Met Antibiotic Timeout Antibiotic Ordered?: Yes MRSA Education MRSA Education Provided to pt: Yes Subjective As above Objective Vital Signs Date Time Temp Pulse Resp B/P (MAP) Pulse Ox O2 Delivery O2 Flow Rate FiO2 03/24/25 15:00 97.8 106 24 145/91 (109) 92 Nasal Cannula 2.0 Vital signs, stable ,afebrile. Pulse Oximetry reflects adequate oxygenation. General: well developed, well nourished. Awake , alert, and oriented x4, resting comfortably in the bed, in no acute distress . Skin: Warm, dry, no pallor, no rash or petechiae. HEENT: Atraumatic, normocephalic, EOMI, anicteric sclera B; pink conjunctiva; PERRLA, normal oropharynx, moist oral and nasal mucosa. Tympanic membrane , nose , throat clear. Neck: Trachea midline. Supple, full range of motion, no JVD, bruit , hepatojugular reflex , lymphadenopathy or masses, or other lesions Cardiac: Regular rhythm, regular rate no murmurs, rubs, or gallops. Normal S1 and S2, no S3 noticed. PMI is normal. Respiratory: Equal breath sounds bilaterally, no tachypnea; lungs clear to auscultation bilaterally, no wheezing ,rub or rales, or crackles. Chest wall is symmetric and without deformity. No signs of trauma. Chest wall is nontender. No signs of respiratory distress. Resonance is normal upon percussion bilaterally. Gastrointestinal: Abdomen symmetric, non-distended, soft, non-tender, normal bowel sounds x4 quadrant, normoactive, no hepatosplenomegaly , no masses , no bruit, no flank pain bilaterally. No voluntary guarding, rebound, or rigidity. No tenderness to percussion. No pulsatile masses. Equal femoral pulses. No Garner's sign or McBurney point tenderness. Back; no CVA tenderness bilaterally, no deformities. Neck and back are without deformity as well. No tenderness noted on palpation of the spinous processes. Spinous processes are midline. Cervical, thoracic, and lumbar paraspinal muscles are not tender and are without spasm. : normal external genitalia, without lesions, swelling, masses or tenderness. Musculoskeletal: Extremities, normal range of motion, non-tender, muscle strength 5/5 x 4. Negative Homans signs bilaterally on lower extremity. Distal pulses full symmetrical, no clubbing, cyanosis , edema. Neurological: Speech is clear, alert, and oriented x 4. No motor or sensory deficit, deep tendon reflexes normal, cerebellar intact. Cranial nerves II-XII intact. Psych: Alert and or appropriate, normal affect. Vascular: Good distal pulses, which are equal x4; capillary refill less than 2 seconds. Lymphatic, no lymphadenopathy. Result Diagram: 03/24/25 0552 03/24/25 0532 Coagulation Studies Laboratory Tests Test 03/21/25 19:06 Prothrombin Time 11.6 SECONDS (9.0-12.0) INR International Normalized Ratio 1.1 INR Activated Partial Thromboplast Time 27 SECONDS (22-32) Coagulation Comments Problem\Assessment\Plan Assessment/Plan Acute on chronic systolic heart failure Heart failure with reduced ejection fraction of 30-35% Dilated cardiomyopathy , methamphetamine related Pulmonary hypertension Previous echocardiogram showed mild concentric LVH. With LVEF of 30-35%. Right ventricle severe dilatation with a reduced function. Elevated right heart pressures with RVSP of 43. Left atrium is mildly dilated. [id number] [place]icus[place] [address] Chest x-ray showed cardiomegaly with bilateral pulmonary congestion Started on Lasix 40 mg IV b.i.d. titrate to lower doses to maintain euvolemia We will continue GDM T medications of losartan 25 mg, spironolactone 25 mg, Jardiance 10 mg, carvedilol 3.125 mg b.i.d. We will continue aspirin 81 mg atorvastatin 40 mg. Right upper extremity cellulitis Bilateral lower extremity cellulitis WBC and lactic acid is normal. Elevated CRP Procalcitonin is ordered Started on vancomycin pharmacy to dose and cefepime 2 g IV q.12h Ordered x-ray right hand and CT lower extremity to rule out osteomyelitis Polysubstance use Methamphetamine use Alcohol use Nicotine use Social and substance use consults were placed and patient is on detox protocol Ordered urinary tox follow up with the results. Troponinemia likely secondary to type 2 [place] EKG showed bifascicular block on troponins are trended down to 158 from 162 Ordered echocardiogram and we will follow up with the results We will continue aspirin, atorvastatin MURTAZA likely secondary to renal tubular stasis Serum creatinine is 1.27 and BUN to creatinine ratio of 19.7 likely suggestive of renal tubular stasis We ordered urinary lytes with serum osmolality, follow up with the results Obesity class 1 Follow up in outpatient with PCP Recommended for weight reduction and physical exercise Code status: Full code Diet: Heart healthy diet DVT prophylaxis: Heparin Prognosis: Guarded Date of Service: Mar 24, 2025 Billing Provider: CHANTAL GARCÍA MD Common Visit Codes: [id number] INP/OBS CARE(HIGH) CHANTAL GARCÍA MD Mar 24, 2025 19:36
[2025-03-24] MEDS: VANCOMYCIN LEVEL IV ONE (20:28)
[2025-03-25] VITALS (8 sets, daily range): BP systolic 93–122; BP diastolic 53–71; PULSE 61–91; RESP 15–29; TEMP 97–98.1; O2SAT 86–99
[2025-03-25 07:07] LABS: MEAN PLATELET VOLUME 7.8 FL (7.4-10.4); RED CELL DISTRIBUTION WIDTH 14.1 % (11.5-14.5)
[2025-03-25 07:21] LABS: CREATININE 1.17 MG/DL (0.60-1.10); PHOSPHORUS 3.8 MG/DL (2.3-4.5); TOTAL CARBON DIOXIDE 35.9 MMOL/L (24-32); eCRCL 57 ML/MIN; eGFR 62 ML/MIN
--- NOTE | 2025-03-25 19:53 | PROGRESS NOTE ---
Daily Progress Note Providers to CC ~ patient is feeling better today, asking to remove Gallegos catheter Central Line/PICC still needed: No Gallegos-Non Protocol Gallegos Indications Met/Not Met: F/C Indications Not Met Antibiotic Timeout Antibiotic Ordered?: Yes MRSA Education MRSA Education Provided to pt: Yes Subjective As above Objective Vital Signs Date Time Temp Pulse Resp B/P (MAP) Pulse Ox O2 Delivery O2 Flow Rate FiO2 03/25/25 15:00 98.1 68 20 113/70 (84) 86 Nasal Cannula 3.0 Vital signs, stable ,afebrile. Pulse Oximetry reflects adequate oxygenation. Patient is on 3 L oxygen nasal cannula General: well developed, well nourished. Awake , alert, and oriented x4, resting comfortably in the bed, in no acute distress . Skin: Warm, dry, no pallor, no rash or petechiae. HEENT: Atraumatic, normocephalic, EOMI, anicteric sclera B; pink conjunctiva; PERRLA, normal oropharynx, moist oral and nasal mucosa. Tympanic membrane , nose , throat clear. Neck: Trachea midline. Supple, full range of motion, no JVD, bruit , hepatojugular reflex , lymphadenopathy or masses, or other lesions Cardiac: Regular rhythm, regular rate no murmurs, rubs, or gallops. Normal S1 and S2, no S3 noticed. PMI is normal. Respiratory: Equal breath sounds bilaterally, no tachypnea; lungs clear to auscultation bilaterally, no wheezing ,rub or rales, or crackles. Chest wall is symmetric and without deformity. No signs of trauma. Chest wall is nontender. No signs of respiratory distress. Resonance is normal upon percussion bilaterally. Gastrointestinal: Abdomen symmetric, non-distended, soft, non-tender, normal bowel sounds x4 quadrant, normoactive, no hepatosplenomegaly , no masses , no bruit, no flank pain bilaterally. No voluntary guarding, rebound, or rigidity. No tenderness to percussion. No pulsatile masses. Equal femoral pulses. No Garner's sign or McBurney point tenderness. Back; no CVA tenderness bilaterally, no deformities. Neck and back are without deformity as well. No tenderness noted on palpation of the spinous processes. Spinous processes are midline. Cervical, thoracic, and lumbar paraspinal muscles are not tender and are without spasm. : normal external genitalia, without lesions, swelling, masses or tenderness. Musculoskeletal: Extremities, normal range of motion, non-tender, muscle strength 5/5 x 4. Negative Homans signs bilaterally on lower extremity. Distal pulses full symmetrical, no clubbing, cyanosis , edema. Neurological: Speech is clear, alert, and oriented x 4. No motor or sensory deficit, deep tendon reflexes normal, cerebellar intact. Cranial nerves II-XII intact. Psych: Alert and or appropriate, normal affect. Vascular: Good distal pulses, which are equal x4; capillary refill less than 2 seconds. Lymphatic, no lymphadenopathy. Result Diagram: 03/25/25 0642 03/25/25 0642 Coagulation Studies Laboratory Tests Test 03/21/25 19:06 Prothrombin Time 11.6 SECONDS (9.0-12.0) INR International Normalized Ratio 1.1 INR Activated Partial Thromboplast Time 27 SECONDS (22-32) Coagulation Comments Problem\Assessment\Plan Assessment/Plan Acute on chronic systolic heart failure Heart failure with reduced ejection fraction of 30-35% Dilated cardiomyopathy , methamphetamine related Pulmonary hypertension Previous echocardiogram showed mild concentric LVH. With LVEF of 30-35%. Right ventricle severe dilatation with a reduced function. Elevated right heart pressures with RVSP of 43. Left atrium is mildly dilated. [id number] [place]icuspid [place] [address] Chest x-ray showed cardiomegaly with bilateral pulmonary congestion Started on Lasix 40 mg IV b.i.d. titrate to lower doses to maintain euvolemia We will continue GDM T medications of losartan 25 mg, spironolactone 25 mg, Jardiance 10 mg, carvedilol 3.125 mg b.i.d. We will continue aspirin 81 mg atorvastatin 40 mg. Right upper extremity cellulitis Bilateral lower extremity cellulitis WBC and lactic acid is normal. Elevated CRP Procalcitonin is ordered Started on vancomycin pharmacy to dose and cefepime 2 g IV q.12h Ordered x-ray right hand and CT lower extremity to rule out osteomyelitis Polysubstance use Methamphetamine use Alcohol use Nicotine use Social and substance use consults were placed and patient is on detox protocol Ordered urinary tox follow up with the results. Troponinemia likely secondary to type 2 ME EKG showed bifascicular block on troponins are trended down to 158 from 162 Ordered echocardiogram and we will follow up with the results We will continue aspirin, atorvastatin MURTAZA likely secondary to renal tubular stasis Serum creatinine is 1.27 and BUN to creatinine ratio of 19.7 likely suggestive of renal tubular stasis We ordered urinary lytes with serum osmolality, follow up with the results Obesity class 1 Follow up in outpatient with PCP Recommended for weight reduction and physical exercise Code status: Full code Diet: Heart healthy diet DVT prophylaxis: Heparin Prognosis: Guarded Date of Service: Mar 25, 2025 Billing Provider: CHANTAL GARCÍA MD Common Visit Codes: 35740-[id number] INP/OBS CARE(HIGH) CHANTAL GARCÍA MD Mar 25, 2025 19:53
[2025-03-26 02:00] VITALS: BP 118/62; PULSE 82; RESP 27; TEMP 97.8; O2SAT 96
[2025-03-26 06:00] VITALS: BP 112/74; PULSE 82; RESP 16; TEMP 97.6; O2SAT 93
[2025-03-26 07:52] LABS: MEAN PLATELET VOLUME 7.7 FL (7.4-10.4); RED CELL DISTRIBUTION WIDTH 14.4 % (11.5-14.5)
[2025-03-26 08:00] VITALS: RESP 16; O2SAT 93
[2025-03-26 08:10] LABS: CREATININE 1.02 MG/DL (0.60-1.10); TOTAL CARBON DIOXIDE 34.9 MMOL/L (24-32); eCRCL 65 ML/MIN; eGFR 72 ML/MIN
[2025-03-26 11:00] VITALS: BP 94/59; PULSE 87; RESP 16; TEMP 97.9; O2SAT 97
[2025-03-26] MEDS ORDERED: CLIN150C98 PO (12:13)
--- NOTE | 2025-03-26 19:37 | DISCHARGE SUMMARY ---
Discharge Summary Providers to CC Feels better today, asking to be discharged home ~ Discharge Summary Assessment COPD, chronic Methamphetamine induced cardiomyopathy Hypertension HFrEF in exacerbation Pulmonary Hypertension Methamphetamine abuse Cellulitis e, bilateral lower extremity Tobacco abuse including currently Alcoholism Polysubstance abuse Acute amphetamine intoxication Non ST-elevation DC type 2 secondary to above Admission Diagnosis: RIGHT UPPER AND LOWER EXTREMITY CELLULITIS, MURTAZA, ACUTE EXACERBATION OF CHF Admission Diagnosis Comment: COPD, chronic Methamphetamine induced cardiomyopathy Hypertension HFrEF in exacerbation Pulmonary Hypertension Methamphetamine abuse Cellulitis e, bilateral lower extremity Tobacco abuse including currently Alcoholism Polysubstance abuse Acute amphetamine intoxication Non ST-elevation DC type 2 secondary to above Hospital Course DATE OF ADMISSION: March 22, 2025 DATE OF DISCHARGE: March 26, 2025 Discharge Diagnosis\Comment: COPD, chronic Methamphetamine induced cardiomyopathy Hypertension HFrEF in exacerbation Pulmonary Hypertension Methamphetamine abuse Cellulitis e, bilateral lower extremity Tobacco abuse including currently Alcoholism Polysubstance abuse Acute amphetamine intoxication Non ST-elevation DC type 2 secondary to above Operations\Procedures: Non Consultants: Non Complications: Non Condition on DC: Stable Discharge Summary: 69-year-old male with history of COPD, polysubstance use, nicotine use, methamphetamine use, alcohol use disorder, meth induced cardiomyopathy, systolic heart failure,, hypertension, presented to the ER with chief complaints of swelling of the right 3rd finger and swelling over bilateral lower leg. He endorses swelling of right 3rd finger for the past 2 and of days and he do have fever for the past 2 days, high-grade, intermittent not associated with chills and rigors. He endorses swelling, redness, pain over the bilateral lower leg for the past few months which is more from the past 3 days. He reports shortness of breath usually with walking for 10-20 block and denied association with orthopnea and PND. He is complaining of the swelling of the leg for the past 3 months. He endorses productive cough with clear mucoid sputum and wheezing for the past 3 days. She is still taking the meth and his last methamphetamine use is 2-3 days back and he is drinking alcohol and his last drink was couple of days back. She denied chest pain, palpitations, facial puffiness, abdominal pain, abdominal distention, decreased urine output, wheezing. He denied weakness of limbs, slurring of speech, deviation of angle of mouth, seizures. Patient was extensively evaluated treated today patient feels better, asking to be discharged home, medication reconciled, vest provided, follow-up PCP in the morning, today on physical exam, Vital signs, stable ,afebrile. Pulse Oximetry reflects adequate oxygenation. General: well developed, well nourished. Awake , alert, and oriented x4, resting comfortably in the bed, in no acute distress . Skin: Warm, dry, no pallor, no rash or petechiae. HEENT: Atraumatic, normocephalic, EOMI, anicteric sclera B; pink conjunctiva; PERRLA, normal oropharynx, moist oral and nasal mucosa. Tympanic membrane , nose , throat clear. Neck: Trachea midline. Supple, full range of motion, no JVD, bruit , hepatojugular reflex , lymphadenopathy or masses, or other lesions Cardiac: Regular rhythm, regular rate no murmurs, rubs, or gallops. Normal S1 and S2, no S3 noticed. PMI is normal. Respiratory: Equal breath sounds bilaterally, no tachypnea; lungs clear to auscultation bilaterally, no wheezing ,rub or rales, or crackles. Chest wall is symmetric and without deformity. No signs of trauma. Chest wall is nontender. No signs of respiratory distress. Resonance is normal upon percussion bilaterally. Gastrointestinal: Abdomen symmetric, non-distended, soft, non-tender, normal bowel sounds x4 quadrant, normoactive, no hepatosplenomegaly , no masses , no bruit, no flank pain bilaterally. No voluntary guarding, rebound, or rigidity. No tenderness to percussion. No pulsatile masses. Equal femoral pulses. No Garner's sign or McBurney point tenderness. Back; no CVA tenderness bilaterally, no deformities. Neck and back are without deformity as well. No tenderness noted on palpation of the spinous processes. Spinous processes are midline. Cervical, thoracic, and lumbar paraspinal muscles are not tender and are without spasm. : normal external genitalia, without lesions, swelling, masses or tenderness. Musculoskeletal: Extremities, normal range of motion, non-tender, muscle strength 5/5 x 4. Negative Homans signs bilaterally on lower extremity. Distal pulses full symmetrical, no clubbing, cyanosis , edema. Neurological: Speech is clear, alert, and oriented x 4. No motor or sensory deficit, deep tendon reflexes normal, cerebellar intact. Cranial nerves II-XII intact. Psych: Alert and or appropriate, normal affect. Vascular: Good distal pulses, which are equal x4; capillary refill less than 2 seconds. Lymphatic, no lymphadenopathy. *Problems/Diagnosis: (1) Acute exacerbation of congestive heart failure Status: Acute (2) Right forearm cellulitis Status: Acute (3) Elevated troponin Status: Acute Total Time Spent on D/C: > 30 Minutes Date of Service: Mar 26, 2025 Billing Provider: CHANTAL GARCÍA MD Common Visit Codes: 61736-WFP/OBS DISCH DAY >30min CHANTAL GARCÍA MD Mar 26, 2025 19:37
== END 2025-03-26 14:55 | disposition home or self-care (01) | DRG 280 ==
LOC: ER 18:18 → ED HOLD 03-22 00:18 → EDBEDREQ 03-22 03:21 → ED HOLD 03-22 23:52 → EDBEDREQ 03-23 05:43 → PCU 3S 03-23 08:36
PROVIDERS: ADMIT Internal Medicine; ATTEND Family Medicine
DX: I11.0 Hypertensive heart disease with heart failure (principal); I50.23 Acute on chronic systolic (congestive) heart failure; I21.A1 Myocardial infarction type 2; L03.115 Cellulitis of right lower limb; I27.20 Pulmonary hypertension, unspecified; L03.116 Cellulitis of left lower limb; L03.113 Cellulitis of right upper limb; N17.9 Acute kidney failure, unspecified; F10.20 Alcohol dependence, uncomplicated; E66.811 Obesity, class 1; F15.129 Other stimulant abuse with intoxication, unspecified; J44.89 Other specified chronic obstructive pulmonary disease; I42.0 Dilated cardiomyopathy; I42.7 Cardiomyopathy due to drug and external agent; Z88.0 Allergy status to penicillin; Z88.1 Allergy status to other antibiotic agents; Z79.899 Other long term (current) drug therapy; Z72.0 Tobacco use; Z79.82 Long term (current) use of aspirin
CPT/HCPCS: 36415; 71045; 73120; 73700; 80053; 80202; 80305; 80320; 81001; 82550; 82565; 82570; 82948; 83605; 83735; 83880; 83930; 83935; 84100; 84132; 84145; 84156; 84300; 84484; 85025; 85610; 85651; 85730; 86140; 87040; 87081; 87207; 93005; 96365; 97116; 97161; 97530; 99285; A4314; A4615; G0378; J0692; J1644; J1938; J2060; J2270; J3373; J3411; J3490; J7040; J7050